=== PATIENT | male | born 1965 | race African-American/Black ===

== ENCOUNTER 2017-11-21 21:18 | Emergency (ER) | payer MEDICARE ==
[~2017-11-21] VITALS: Ht 193 cm; Wt 97.3 kg
[~2017-11-21 21:18] MED LIST: 00186-0372-20 IH; DILANTIN 100MG100 MG PO; E GEMS PO; KEPPRA1000 MG PO; LAMICTAL 100MG100 MG PO; MULTIPLE VITAMI1 CAP PO; SHARK CARTILAGE PO; TARCEVA; TARCEVA100 MG PO; TARCEVA150 MG PO; VITAMIN D 50,1.25 MG PO; ZITHROMAX TRI-500 MG PO; [UNRECOGNIZED DRUG - OTHER] PO
[2017-11-21 21:23] VITALS: TEMP 98.6
[2017-11-21 22:12] LABS: BASO % 0.3 % (0.0-2.0); EOS # 0.2 (0.0-0.7); EOS % 1.9 % (0-4.0); GRAN # 6.4 (1.4-6.5); GRAN % 66.5 % (42.2-75.2); HEMATOCRIT 40.9 % (42.0-52.0); HEMOGLOBIN 13.8 g/dl (13.5-18.0); LYMPH # 2.3 (1.2-3.4); LYMPH % 23.6 % (20.0-51.0); MEAN CELL VOLUME 91 fl (80.0-100.0); MEAN CORPUSCULAR HEMOGLOBIN 31 pg (27.0-31.0); MEAN CORPUSCULAR HGB CONC 34 g/dl (33.0-37.0); MEAN PLATELET VOLUME 8.1 fl (7.4-10.4); MONO # 0.7 (0.1-0.6); MONO % 7.3 % (1.7-9.3); PLATELET COUNT 312 K/mm3 (130-400); RED BLOOD COUNT 4.52 M/mm3 (4.20-5.60); REDCELL DISTRIBUTION WIDTH-CV 13.5 % (11.5-14.5)
[2017-11-21 22:30] LABS: ALBUMIN 4.1 gm/dL (3.5-5.0); BILIRUBIN,TOTAL 0.5 mg/dL (0.0-1.0); CALCIUM 9.2 mg/dL (8.4-10.2); CREATININE, serum 0.85 mg/dL (0.66-1.25); POTASSIUM 4.4 mmol/L (3.4-5.0); TOTAL PROTEIN 8.1 gm/dL (6.4-8.2)
[2017-11-21 22:43] LABS: TROPONIN-I 0.016 ng/mL (0.000-0.034)
[2017-11-21 22:46] LABS: PROLACTIN 11.6 ng/mL (3.7-17.9)
[2017-11-22 00:29] VITALS: BP 155/97; PULSE 67
== END 2017-11-22 00:34 | disposition home or self-care (01) ==
LOC: COL.ER 21:18
PROVIDERS: Emergency Medicine
DX: S20.219A Contusion of unspecified front wall of thorax, initial encounter (principal); R55 Syncope and collapse; J44.9 Chronic obstructive pulmonary disease, unspecified; G40.909 Epilepsy, unspecified, not intractable, without status epilepticus; Z87.891 Personal history of nicotine dependence; Z85.118 Personal history of other malignant neoplasm of bronchus and lung; Z85.841 Personal history of malignant neoplasm of brain; Z79.52 Long term (current) use of systemic steroids; W18.39XA Other fall on same level, initial encounter
CPT/HCPCS: J7030

== ENCOUNTER → 2018-01-07 | Outpatient (REF) ==
[2018-01-07 15:59] LABS: THYROID STIMULATING HORMONE 1.23 uIU/mL (0.465-4.680)
== END ==
LOC: ZLAB.WCH 14:47
PROVIDERS: Internal Medicine
DX: Z01.89 Encounter for other specified special examinations (principal)

== ENCOUNTER 2018-08-21 16:11 | Emergency (ER) | payer MEDICARE ==
[~2018-08-21] VITALS: Ht 188 cm; Wt 100.0 kg
[2018-08-21 16:16] VITALS: TEMP 96.7
[2018-08-21 17:22] LABS: BASO % 0.4 % (0.0-2.0); EOS # 0.2 (0.0-0.7); EOS % 4.2 % (0-4.0); GRAN # 3.3 (1.4-6.5); HEMATOCRIT 43.2 % (42.0-52.0); HEMOGLOBIN 14.3 g/dl (13.5-18.0); LYMPH # 1.5 (1.2-3.4); LYMPH % 26.4 % (20.0-51.0); MEAN CELL VOLUME 91 fl (80.0-100.0); MEAN CORPUSCULAR HEMOGLOBIN 30 pg (27.0-31.0); MEAN CORPUSCULAR HGB CONC 33 g/dl (33.0-37.0); MEAN PLATELET VOLUME 8.1 fl (7.4-10.4); MONO # 0.5 (0.1-0.6); MONO % 9.6 % (1.7-9.3); PLATELET COUNT 295 K/mm3 (130-400); RED BLOOD COUNT 4.73 M/mm3 (4.20-5.60); REDCELL DISTRIBUTION WIDTH-CV 13.2 % (11.5-14.5)
[2018-08-21 17:45] LABS: BILIRUBIN,TOTAL 0.2 mg/dL (0.0-1.0); CREATININE, serum 1.04 mg/dL (0.66-1.25); POTASSIUM 4.1 mmol/L (3.4-5.0); TOTAL PROTEIN 7.8 gm/dL (6.4-8.2)
[2018-08-21 18:21] LABS: PHENYTOIN (DILANTIN) 17.7 ug/mL (10.0-20.0)
[2018-08-21 18:40] VITALS: BP 127/81; PULSE 75
== END 2018-08-21 18:48 | disposition home or self-care (01) ==
LOC: COL.ER 16:11
PROVIDERS: Physician Assistant
DX: S01.01XA Laceration without foreign body of scalp, initial encounter (principal); J44.9 Chronic obstructive pulmonary disease, unspecified; C34.90 Malignant neoplasm of unspecified part of unspecified bronchus or lung; C79.31 Secondary malignant neoplasm of brain; W01.198A Fall on same level from slipping, tripping and stumbling with subsequent striking against other object, initial encounter; Y92.009 Unspecified place in unspecified non-institutional (private) residence as the place of occurrence of the external cause

== ENCOUNTER 2018-08-29 09:22 | Emergency (ER) | payer MEDICARE ==
[2018-08-29 09:35] VITALS: BP 141/72; PULSE 75; TEMP 97.9
== END 2018-08-29 09:35 | disposition home or self-care (01) ==
LOC: COL.ER 09:22
DX: S01.81XD Laceration without foreign body of other part of head, subsequent encounter (principal); X58.XXXD Exposure to other specified factors, subsequent encounter

== ENCOUNTER → 2018-09-03 | Outpatient (REF) | LOC: ZLAB.WCH 10:06 | DX: Z01.89 Encounter for other specified special examinations (principal) ==

== ENCOUNTER 2020-07-15 10:54 | Emergency (ER) | payer SELFPAY ==
[~2020-07-15] VITALS: Ht 185.4 cm; Wt 104.5 kg
[2020-07-15] MEDS ORDERED: FLEXERIL 1010 MG/TAB PO (12:16)
[2020-07-15 12:40] VITALS: BP 162/64; PULSE 76; TEMP 97.1
== END 2020-07-15 12:36 | disposition home or self-care (01) ==
LOC: COL.ER 10:54
DX: S16.1XXA Strain of muscle, fascia and tendon at neck level, initial encounter (principal); S39.012A Strain of muscle, fascia and tendon of lower back, initial encounter; Z85.118 Personal history of other malignant neoplasm of bronchus and lung; Z87.891 Personal history of nicotine dependence; V89.2XXA Person injured in unspecified motor-vehicle accident, traffic, initial encounter

== ENCOUNTER 2023-03-12 12:57 | Outpatient (RCR) | payer MEDICARE ==
[~2023-03-12 12:57] MED LIST changes: +ATIVAN 0.50.5 MG/TAB PO; +AZITHROMYC1 GM/PACKE PO; +FLEXERIL 1010 MG/TAB PO; +FLEXERIL5 MG PO; +LAMICTAL200 MG PO; +MOBIC15 MG PO; +PROAIR HFA0.09 MG/AC IH; +TRELEGY ELLIPT1 EACH IH; +WELLBUTRIN XL150 MG PO; +ZITHROMAX 250M250 MG PO
== END 2023-04-06 | disposition home or self-care (01) ==
LOC: WSOT
DX: G40.409 Other generalized epilepsy and epileptic syndromes, not intractable, without status epilepticus (principal); G93.89 Other specified disorders of brain

== ENCOUNTER 2023-07-04 09:30 | Outpatient (RCR) | payer MEDICARE | END 2023-07-07 | disposition home or self-care (01) | LOC: WSOT | DX: R26.89 Other abnormalities of gait and mobility (principal) ==

== ENCOUNTER 2023-07-04 10:30 | Outpatient (RCR) | payer MEDICARE | END 2023-07-07 | disposition home or self-care (01) | LOC: WSPT | DX: M62.81 Muscle weakness (generalized) (principal) ==

== ENCOUNTER 2023-08-05 09:00 | Outpatient (RCR) | payer MEDICARE ==
[~2023-08-05 09:00] MED LIST changes: +ERGOCALCIFER50000 IU PO; +KEPPRA 500MG500 MG PO; +TYLENOL 8 HR PO
== END 2023-08-07 | disposition home or self-care (01) ==
LOC: WSPT
DX: M62.81 Muscle weakness (generalized) (principal)

== ENCOUNTER 2023-08-05 09:45 | Outpatient (RCR) | payer MEDICARE | END 2023-08-07 | disposition home or self-care (01) | LOC: WSOT | DX: G40.409 Other generalized epilepsy and epileptic syndromes, not intractable, without status epilepticus (principal); G93.89 Other specified disorders of brain; R27.8 Other lack of coordination ==